=== PATIENT | male | born 1970 | race Caucasian/White ===

== ENCOUNTER 2016-08-28 13:42 | Emergency (ER) | payer BC ==
--- NOTE | ~2016-08-28 | CT2 ---
[facility] A Service of [facility] RADIOLOGY TEXT RESULTS PATIENT: AIXA NINA LOCATION: [facility] : [birth year] UNIT #: [id number] AGE: [address]: SPEEDY TELLO SEX: M ORDER DR: [id number] [facility] [address] [place], [place] [address] [id number] MR#: [id number] Acc #: [id number] NAME: AIXA NINA : 1970 SEX: M STUDY DATE/TIME: 08/28/2016 13:35 UNIT: [facility] ROOM: STUDY DESCRIPTION: CT Abd and Pelv W Cont Attending Physician: Speedy Tello Aprn Ordering Physician: Jil Chapman M.D. Primary Care Physician: No Primary Care Physician MEDICAL IMAGING REPORT This report is preliminary unless electronic signature is present EXAM CT abdomen and pelvis with contrast, 08/28/2016, 1335 hours. CLINICAL HISTORY 46-year-old man with [id number] abdominal pain for 2 days with constipation. No prior abdominal surgery. COMPARISON None TECHNIQUE Dynamic helical CT images were obtained from the lung bases through the pubic symphysis. Intravenous contrast was Isovue-370 100 mL IV. There is no oral contrast material. Total exam DLP 605 mGy-cm. This CT exam was performed with one or more of the following radiation dose reduction techniques: automatic exposure control, adjustment of mA and/or kV according to patient size, and iterative reconstruction. FINDINGS Images through the lung bases are clear. There are no effusions. The distal esophagus is normal. Images through the abdomen demonstrate diffuse low attenuation of the liver relative to the spleen, most consistent with diffuse fatty infiltration. There is an indeterminate 1.2 cm low-density nodule in the posterior right lobe of the liver superiorly on image 19. This is too small to accurately characterize but is likely a cyst. The liver is otherwise normal. The spleen, pancreas, gallbladder, bile ducts, and adrenal glands are normal. The kidneys enhance normally with no mass or stone or dilatation. There is no ureterectasis or ureteral stone. The bladder is normal. [facility] A Service of [facility] & [facility] RADIOLOGY TEXT RESULTS PATIENT: AIXA NINA LOCATION: [facility] : [birth year] UNIT #: [id number] AGE: [address]: SPEEDY TELLO SEX: M ORDER DR: Unopacified stomach is contracted but normal in appearance. There is no small bowel distension or wall thickening. The terminal ileum, cecum, and appendix are normal. There is moderate stool in the right colon and transverse colon with no distension or wall thickening. The distal colon and rectosigmoid colon are decompressed. CT pelvis is negative. IMPRESSION 1. No acute abnormalities are seen in the abdomen or pelvis. There is mild fatty change in the liver and a 1.2 cm low-density lesion best seen on image 19 likely a cyst. 2. There is no definite small bowel distension or wall thickening. 3. Normal appearance to the terminal ileum, cecum, and appendix. 4. Negative CT pelvis. Dictated by... Tricia Sanchez M.D. THIS IS AN ELECTRONICALLY VERIFIED REPORT Tricia Sanchez M.D. at 08/28/2016 5:46 PM ELDON/joanna TD: 08/28/2016 16:00 JOB #: [id number] MEDICAL IMAGING REPORT Page 1 of 1 COPY
[2016-08-28 11:19] LABS: BASOPHIL% 0.1 % (0-2.5); EOSINOPHIL# 0.1 X10e3 (0-0.7); EOSINOPHIL% 1.6 % (0.0-7.0); HEMATOCRIT 45.4 % (38.0-50.0); HEMOGLOBIN 15.5 gm/dL (13.0-16.0); LYMPHOCYTE# 1.6 X10e3 (1.0-3.5); LYMPHOCYTE% 24.1 % (17.0-45.0); MEAN CELL VOLUME 95.9 FL (83-96); MEAN CORPUSCULAR HEMOGLOBIN 32.7 PG (28-34); MEAN CORPUSCULAR HGB CONC 34.1 g/dL (30-36); MEAN PLATELET VOLUME 7.9 FL (6.5-11.5); MONOCYTE# 0.5 X10e3 (0-1.0); MONOCYTE% 7.9 % (3.0-12.0); NEUTROPHIL# 4.4 X10e3 (1.5-7.1); NEUTROPHIL% 66.3 % (40-75); PLATELET COUNT 183 X10e3 (140-420); RED BLOOD COUNT 4.73 X10e (3.90-5.60); RED CELL DISTRIBUTION WIDTH 12.1 % (11.0-15.5); WHITE BLOOD COUNT 6.7 X10e3 (4.0-10.5)
[2016-08-28 11:20] LABS: DIFF IND NO
[2016-08-28 12:11] LABS: URINE SOURCE CLEAN CATCH
[2016-08-28 12:11] LABS: ALBUMIN SERUM 4.4 g/dL (3.5-5.0); BILIRUBIN, DIRECT 0.1 mg/dL (0.0-0.2); BILIRUBIN,INDIRECT 0.4 mg/dL (0.0-0.9); BILIRUBIN,TOTAL 0.5 mg/dL (0.2-2.0); BUN/CREATININE RATIO 26.25; CALCIUM SERUM 9.5 mg/dL (8.4-10.2); CREATININE SERUM 0.8 mg/dL (0.6-1.4); GLOM FILT RATE Estimated 106.4 mL/min (>60); POTASSIUM 4.1 mmol/L (3.5-5.1); PROTEIN TOTAL SERUM 7.4 g/dL (6.0-8.3)
[2016-08-28 12:54] LABS: URINE APPEARANCE CLEAR; URINE BILIRUBIN NEG (NEG); URINE BLOOD NEG (NEG); URINE COLOR YELLOW; URINE GLUCOSE NORM (NORM); URINE KETONE NEG (NEG); URINE LEUKOCYTE ESTERASE NEG (NEG); URINE NITRATE NEG (NEG); URINE PROTEIN NEG (NEG); URINE UROBILINOGEN NORM (NORM)
[2016-08-28 12:56] LABS: CULTURE INDICATED? NO
== END 2016-08-28 16:17 | disposition home or self-care (01) ==
LOC: CED 13:42
PROVIDERS: Emergency Medicine
DX: K59.00 Constipation, unspecified (principal); F17.200 Nicotine dependence, unspecified, uncomplicated
CPT/HCPCS: 74177; 80048; 80076; 81003; 83690; 85025; 96361; 96374; 99284; J2405; Q9967

== ENCOUNTER → 2016-12-08 | Outpatient (CLI) | payer BC ==
--- NOTE | ~2016-12-08 | NM19 ---
[facility] A Service of [facility] RADIOLOGY TEXT RESULTS PATIENT: AIXA NINA JR LOCATION: [facility] : 68 UNIT #: [id number] AGE: [address]: Aixa Zimmer MD SEX: M ORDER DR: [id number] [facility] [address] [place] [address] [place], [place] [address] [id number] O MR#: [id number] Acc #: [id number] NAME: AIXA NINA : 1970 SEX: M STUDY DATE/TIME: 12/08/2016 10:11 UNIT: [facility] ROOM: STUDY DESCRIPTION: MA Gastric Emptying Study Attending Physician: Aixa Zimmer M.D. Referring Physician: Aixa Zimmer M.D. Ordering Physician: Aixa Zimmer M.D. Primary Care Physician: Cristal Mathis M.D. MEDICAL IMAGING REPORT This report is preliminary unless electronic signature is present EXAM Gastric emptying scan 12/08/2016 HISTORY Constipation, slow gastric emptying, gastroparesis. Recent upper endoscopy and intestine still had food from 14 hours prior. Gassy abdominal bloating and acid reflux symptoms began 4 years ago. TECHNIQUE The patient ingested 555 microcuries of technetium-99m tagged sulfur colloid in eggs. Images of the upper abdomen were obtained for 4 hours. FINDINGS After 1 hour, the stomach was 52% empty, and after 2 hours, the stomach was 87% empty, and after 4 hours the stomach was 99% empty. Normal range is greater than 60% empty after 2 hours of imaging and greater than 90% empty after 4 hours of imaging. IMPRESSION Normal gastric emptying after 2 and 4 hours of imaging. Dictated by... Dewayne Smalls M.D. THIS IS AN ELECTRONICALLY VERIFIED REPORT Dewayne Smalls M.D. at 12/11/2016 10:14 AM PATSY/ritesh TD: 12/08/2016 18:17 JOB #: [id number] MEDICAL IMAGING REPORT [facility] A Service of [facility] RADIOLOGY TEXT RESULTS PATIENT: AIXA NINA JR LOCATION: [facility] #: [id number] : [birth year] UNIT #: [id number] AGE: [address]: Aixa Zimmer MD SEX: M ORDER DR: Page 1 of 1 COPY
== END | disposition home or self-care (01) ==
LOC: CNUC 09:19
DX: K31.84 Gastroparesis (principal); K59.00 Constipation, unspecified; K57.30 Diverticulosis of large intestine without perforation or abscess without bleeding; Z80.0 Family history of malignant neoplasm of digestive organs; Z86.010 Personal history of colon polyps
CPT/HCPCS: 78264; A9541